=== PATIENT | female | born 1940 | race Caucasian/White ===

== ENCOUNTER 2024-03-01 08:24 | Emergency (ER) | payer MEDICARE, OTHER | END 2024-03-01 11:29 | disposition home or self-care (01) | LOC: JP.ED 08:24 | DX: S02.31XA Fracture of orbital floor, right side, initial encounter for closed fracture (principal); S00.83XA Contusion of other part of head, initial encounter; H11.31 Conjunctival hemorrhage, right eye; I10 Essential (primary) hypertension; E78.00 Pure hypercholesterolemia, unspecified; K21.9 Gastro-esophageal reflux disease without esophagitis; Z79.899 Other long term (current) drug therapy; Z79.82 Long term (current) use of aspirin; Z88.5 Allergy status to narcotic agent; W18.30XA Fall on same level, unspecified, initial encounter | CPT/HCPCS: 70486; 70486-26; 99283 ==